=== PATIENT | male | born 1975 | race Caucasian/White ===

== ENCOUNTER 2018-01-02 14:17 | Inpatient (IN) | payer OTHER ==
[2018-01-02 14:27] LABS: ADD MAN DIFF? NO
[2018-01-02 14:29] LABS: WHITE BLOOD COUNT 15.5 10^3/ul (4.8-10.8)
[2018-01-02 14:29] LABS: BASOPHIL # 0.1 10^3/ul (0.0-0.1); BASOPHILS % 0.5 % (0.0-2.0); EOSINOPHILS % 0.1 % (0.0-7.0); HEMATOCRIT 57.2 % (42.0-52.0); LYMPHOCYTES # 1.6 10^3/ul (0.8-2.9); LYMPHOCYTES % 10.6 % (15.0-51.0); MEAN CORPUSCULAR HGB CONC 33.2 g/dl (32.0-37.0); MEAN CORPUSCULAR VOLUME 93.3 fl (82.0-101.0); MEAN PLATELET VOLUME 9.4 fl (7.4-10.4); MONOCYTE # 0.9 10^3/ul (0.3-0.9); MONOCYTES % 5.7 % (0.0-11.0); NEUTROPHIL # 12.8 10^3/ul (1.6-7.5); NEUTROPHILS % 82.8 % (39.0-77.0); PLATELET COUNT 324 10^3/UL (140-415); RED BLOOD COUNT 6.13 10^6/ul (4.70-6.10); RED CELL DISTRIBUTION WIDTH 12.9 % (11.5-14.5)
[2018-01-02] MEDS: ONDANSETRON 4 MG INJ IV (14:38)
[2018-01-02] MEDS: morphine 4 MG/ML VIAL IV ×2 (14:38→17:19)
[2018-01-02] MEDS: NITROGLYCERIN 2% 1 GM OINT PKT TD (14:39)
[2018-01-02] MEDS: IOHEXOL 300MG/ML 150 ML BTL (14:40)
[2018-01-02] MEDS: SOD CHLORIDE 0.9% 100 ML (14:40)
[2018-01-02 14:45] LABS: ANION GAP 22 (8-16); BLOOD UREA NITROGEN 24 mg/dl (7-20); CALCIUM 10.5 mg/dl (8.4-10.2); CARBON DIOXIDE 16 mmol/L (21-31); CHLORIDE 116 mmol/L (97-110); CREATININE 1.73 mg/dl (0.61-1.24); GLUCOSE 170 mg/dl (70-220); POTASSIUM 4.3 mmol/L (3.5-5.1); SODIUM 150 mmol/L (135-144)
[2018-01-02 14:46] LABS: INR 0.95; PROTIME 12.8 Sec (11.9-14.9)
[2018-01-02 14:47] LABS: PARTIAL THROMBOPLASTIN TIME 25.8 Sec (25.0-35.0)
[2018-01-02] MEDS: SOD CHLORIDE 0.9% 1,000 ML IV (15:09)
[2018-01-02] MEDS: NITROGLYCERIN (SL) 0.4 MG TAB SL (17:05)
[2018-01-02] MEDS: METOPROLOL 25 MG TAB PO (17:25)
[2018-01-02] MEDS ORDERED: ALBUTEROL/IPRATROPIUM (NEB) 3 ML AMP HHN (17:30)
[2018-01-02] MEDS ORDERED: NITROGLYCERIN (SL) 0.4 MG TAB SL (17:30)
[2018-01-02] MEDS ORDERED: hydrOXYzine HCL 25 MG TAB PO (17:30)
[2018-01-02] MEDS ORDERED: ONDANSETRON 4 MG INJ IV ×2 (17:30)
[2018-01-02] MEDS ORDERED: HYDROCODONE/APAP (5/325) TAB PO (17:30)
[2018-01-02] MEDS ORDERED: DOCUSATE SODIUM 100 MG CAP PO (17:30)
[2018-01-02] MEDS ORDERED: NA PHOSPHATE/BIPHOS 133 ML ENEMA PR (17:30)
[2018-01-02] MEDS ORDERED: MAGNESIUM HYDROXIDE 30ML CUP PO (17:30)
[2018-01-02] MEDS ORDERED: NACL 0.9% 3 ML SYG IV (17:30)
[2018-01-02] MEDS ORDERED: hydrALAzine 20 MG INJ IV (17:30)
[2018-01-02] MEDS ORDERED: ACETAMINOPHEN 325 MG TAB PO ×2 (17:30)
[2018-01-02] MEDS ORDERED: traMADol 50 MG TAB PO (17:30)
[2018-01-02] MEDS ORDERED: LORAZEPAM 2 MG INJ IV (17:30)
[2018-01-02] MEDS: morphine 2 MG INJ IV ×2 (18:55→23:28)
[2018-01-02 19:50] LABS: FREE T4 (FREE THYROXINE) 1.96 ng/dl (0.64-1.79)
[2018-01-02 21:47] LABS: CREATINE KINASE 147 IU/L (23-200)
[2018-01-02 22:00] LABS: CK INDEX 0.7; TROPONIN-I 0.019 ng/ml (0.000-0.120)
[2018-01-02 22:07] LABS: CK-MB 1.01 ng/ml (0.0-2.4)
[2018-01-02] MEDS: DEXTROSE 5% 1,000 ML IV (22:47)
[2018-01-02] MEDS: HEPARIN 5,000 UNIT/0.5 ML VIAL SC (23:51)
[2018-01-02] MEDS: ATORVASTATIN 20 MG TAB PO (23:51)
[2018-01-03 00:24] LABS: CREATINE KINASE 142 IU/L (23-200)
[2018-01-03 00:37] LABS: CK INDEX 0.7; TROPONIN-I 0.018 ng/ml (0.000-0.120)
[2018-01-03 00:39] LABS: CK-MB 0.95 ng/ml (0.0-2.4)
[2018-01-03] MEDS: morphine 2 MG INJ IV ×3 (02:49→12:53)
[2018-01-03] MEDS: SOD CHLORIDE 0.9% 500 ML IV (03:13)
[2018-01-03] MEDS: METOPROLOL 25 MG TAB PO (03:17)
[2018-01-03] MEDS: DEXTROSE 5% 1,000 ML IV (03:30)
[2018-01-03] MEDS: PANTOPRAZOLE (EC) 40 MG TAB PO (06:09)
[2018-01-03 07:29] LABS: ADD MAN DIFF? NO
[2018-01-03 07:39] LABS: ABNORMAL IP MESSAGE 1; BASOPHILS % 0.3 % (0.0-2.0); EOSINOPHILS % 0.3 % (0.0-7.0); HEMATOCRIT 46.9 % (42.0-52.0); HEMOGLOBIN 15.3 g/dl (14.0-18.0); LYMPHOCYTES # 3.3 10^3/ul (0.8-2.9); LYMPHOCYTES % 26.6 % (15.0-51.0); MEAN CORPUSCULAR HEMOGLOBIN 30.8 pg (29.0-33.0); MEAN CORPUSCULAR HGB CONC 32.6 g/dl (32.0-37.0); MEAN CORPUSCULAR VOLUME 94.4 fl (82.0-101.0); MEAN PLATELET VOLUME 10.1 fl (7.4-10.4); MONOCYTE # 1.5 10^3/ul (0.3-0.9); MONOCYTES % 12.2 % (0.0-11.0); NEUTROPHIL # 7.5 10^3/ul (1.6-7.5); NEUTROPHILS % 60.4 % (39.0-77.0); PLATELET COUNT 239 10^3/UL (140-415); POSITIVE DIFF @See below; RED BLOOD COUNT 4.97 10^6/ul (4.70-6.10); RED CELL DISTRIBUTION WIDTH 13.4 % (11.5-14.5)
[2018-01-03 07:39] LABS: WHITE BLOOD COUNT 12.4 10^3/ul (4.8-10.8)
[2018-01-03 07:51] LABS: HEMOGLOBIN A1C 6.1 % (0-5.9)
[2018-01-03 07:54] LABS: ANION GAP 15 (8-16); BLOOD UREA NITROGEN 30 mg/dl (7-20); CALCIUM 8.3 mg/dl (8.4-10.2); CARBON DIOXIDE 22 mmol/L (21-31); CHLORIDE 110 mmol/L (97-110); CREATININE 1.14 mg/dl (0.61-1.24); GLUCOSE 129 mg/dl (70-220); MAGNESIUM 1.7 mg/dl (1.7-2.5); PHOSPHORUS 3.8 mg/dl (2.5-4.9); POTASSIUM 3.8 mmol/L (3.5-5.1); SODIUM 143 mmol/L (135-144)
[2018-01-03 07:55] LABS: CHOLESTEROL 119 mg/dl (100-200)
[2018-01-03 07:55] LABS: CHOL/HDL RATIO 2.9 RATIO; HDL CHOLESTEROL 41 mg/dl (27-67); LDL CHOLESTEROL,CALCULATED 55 mg/dl; TRIGLYCERIDES 114 mg/dl (0-149)
[2018-01-03 08:02] LABS: CREATINE KINASE 129 IU/L (23-200)
[2018-01-03 08:09] LABS: CK INDEX 0.8; TROPONIN-I 0.012 ng/ml (0.000-0.120)
[2018-01-03] MEDS: LEVOFLOXACIN 750MG/D5W (PMX) 150 ML IVPB (08:09)
[2018-01-03] MEDS: ASPIRIN (EC) 325 MG TAB PO (08:09)
[2018-01-03 08:11] LABS: CK-MB 1.02 ng/ml (0.0-2.4)
[2018-01-03] MEDS: METOPROLOL (XL) 100 MG TAB PO (08:11)
[2018-01-03] MEDS: HEPARIN 5,000 UNIT/0.5 ML VIAL SC (08:18)
[2018-01-03 08:26] LABS: THYROID STIMULATING HORMONE 0.702 MIU/L (0.465-4.680)
[2018-01-03 11:38] LABS: ADD UMIC YES; UR ASCORBIC ACID NEGATIVE (NEGATIVE); UR BACTERIA FEW /HPF (NONE SEEN); UR BILIRUBIN (Dip) NEGATIVE (NEGATIVE); UR BLOOD (Dip) NEGATIVE (NEGATIVE); UR CLARITY SLIGHTLY CLOUDY (CLEAR); UR COLOR YELLOW (YELLOW); UR GLUCOSE (Dip) NEGATIVE (NEGATIVE); UR KETONES (Dip) NEGATIVE (NEGATIVE); UR LEUKOCYTE ESTERASE (Dip) NEGATIVE Leu/ul (NEGATIVE); UR MUCUS FEW /HPF (NONE SEEN); UR NITRITE (Dip) NEGATIVE (NEGATIVE); UR RBC 2 /HPF (0-5); UR SPECIFIC GRAVITY (Dip) 1.039 (1.003-1.030); UR TOTAL PROTEIN (Dip) 1+ mg/dl (NEGATIVE); UR UROBILINOGEN (Dip) NEGATIVE (NEGATIVE); UR WBC 1 /HPF (0-5)
[2018-01-03 11:50] LABS: CANNABINOIDS Positive (NEGATIVE)
[2018-01-03 11:58] LABS: AMPHETAMINE/METHAMPHETAMINE Positive (NEGATIVE); BARBITURATES Negative (NEGATIVE); BENZODIAZEPINES Negative (NEGATIVE); COCAINE Negative (NEGATIVE); OPIATES Positive (NEGATIVE)
[2018-01-03] MEDS: REGADENOSON 0.4 MG/5 ML SYG (14:33)
== END 2018-01-03 17:31 | disposition home or self-care (01) | DRG 313 ==
LOC: E/R 14:17 → TEL 17:10
DX: R07.9 Chest pain, unspecified (principal); E87.1 Hypo-osmolality and hyponatremia; I10 Essential (primary) hypertension; I25.2 Old myocardial infarction; I25.10 Atherosclerotic heart disease of native coronary artery without angina pectoris; F17.210 Nicotine dependence, cigarettes, uncomplicated; E11.9 Type 2 diabetes mellitus without complications; J45.20 Mild intermittent asthma, uncomplicated; E78.5 Hyperlipidemia, unspecified; N28.9 Disorder of kidney and ureter, unspecified; F15.10 Other stimulant abuse, uncomplicated; F11.10 Opioid abuse, uncomplicated; F12.10 Cannabis abuse, uncomplicated; Z79.82 Long term (current) use of aspirin; Z79.84 Long term (current) use of oral hypoglycemic drugs
CPT/HCPCS: 71045; 71275; 78452; 80048; 80061; 80307; 81001; 82550; 82553; 82962; 83036; 83735; 84100; 84439; 84443; 84484; 85025; 85610; 85730; 87086; 93005; 93017; 93306; 96374; 96375; 96376; 99291-25